=== PATIENT | female | born 2000 | race Caucasian/White ===

== ENCOUNTER 2020-10-19 04:07 | Emergency (ER) | payer MEDICAID ==
[~2020-10-19] VITALS: Ht 160 cm; Wt 68.9 kg
[2020-10-19 04:32] VITALS: BP 112/73; Ht 160 cm; Wt 68.9 kg
[2020-10-19 06:57] LABS: UA SPECIFIC GRAVITY >=1.030 (1.005-1.035); microscopic required? YES; urine erythrocyte 3+ (NEGATIVE)
== END 2020-10-19 06:40 | disposition home or self-care (01) ==
LOC: ED 04:07
PROVIDERS: Emergency Medicine
DX: N20.0 Calculus of kidney (principal); O26.891 Other specified pregnancy related conditions, first trimester; Z3A.12 12 weeks gestation of pregnancy
CPT/HCPCS: Q0162